=== PATIENT | female | born 1985 | race Caucasian/White ===

== ENCOUNTER 2021-02-04 09:02 | Emergency (ER) | payer OTHER, SELFPAY ==
[2021-02-04 09:05] VITALS: BP 123/76; PULSE 74; RESP 17; TEMP 36.6; O2SAT 100; BMI 32.2
--- NOTE | 2021-02-04 09:28 | EKG12_ITS ---
Test Reason : CP Blood Pressure : / mmHG Vent. Rate : 078 BPM Atrial Rate : 078 BPM P-R Int : 140 ms QRS Dur : 072 ms QT Int : 406 ms P-R-T Axes : 053 003 006 degrees QTc Int : 462 ms Normal sinus rhythm Normal ECG Confirmed by HUE RASCON MD ([id number]), research editor [address] ([id number]) on 02/07/2021 1:10:48 PM Referred By: JACQUES
--- NOTE | 2021-02-04 09:28 | EDS_ITS ---
HPI History of Present Illness Chief Complaint: Chest Pain Informant: patient Onset/Context/Timing Onset: Weeks (1) Activity at onset: sudden (has triggered multiple times by bending over) and onset Timing: Intermittent and Lasts (hrs) Quality: Positive for Pain Location: Substernal (sometimes feels in mid-upper back) Current Severity: Mild Maximum Severity: Moderate Worsened By: Movement of Arm, Movement of Torso, Palpation, Breathing and Coughing; Not Worsened By Exertion Relieved By: Remaining Still (and breathing easy) Associated Symptoms: Positive for Dyspnea (a little when exerting/walking) and Cough; Negative for Nausea, Vomiting, Diaphoresis, Fever, Lightheadedness and Palpitations Narrative Narrative: Patient states she has been coughing for about 3 weeks. It has been nonproductive. She lost her sense of taste and smell although they have come back and she presumes that she had Covid but did not get tested at the time. She is unvaccinated. She has had no dyspnea until recently when she has been having this chest discomfort for the past week off and on. She does get it tristen ry day. She saw urgent care 3 days ago and they prescribed her doxycycline. She has noticed no difference. They did not she do chest x-ray and she states they told her her lungs sounded clear. She has had no new symptoms since then. No GI symptoms. No history of blood clots. No leg pain or swelling. She is healthy otherwise. PFSH PFS Medical History no medical history no medical history Allergy/AdvReac Type Severity Reaction Status Date / Time No Known Allergies Allergy Verified 02/04/21 09:02 Surgical History no surgical history no surgical history Social History Smoking Status: Never smoker [facility] ED Constitutional Constitutional ED: Denies chills or fever(s) Eyes Eyes: Denies change in vision or diplopia ENT ENT ED: Denies rhinorrhea or sore throat Cardiovascular Cardiovascular: Reports as per HPI and chest pain; Denies lightheadedness, palpitations, pedal edema or radiating jaw, neck or arm pain Respiratory/Chest Respiratory/Chest: Reports cough and dyspnea on exertion; Denies sputum or wheezing Gastrointestinal Gastrointestinal: Denies abdominal pain, diarrhea, nausea or vomiting Genitourinary Genitourinary ED: Denies dysuria or hematuria Musculoskeletal Musculoskeletal: Denies back pain or neck pain Integumentary Denies abscess or rash Neurologic Neurologic: Denies headache(s), paresthesias or weakness Psychiatric Psychiatric: Denies anxiety or suicidal thoughts EXAM Physical Exam Const Vital Signs: 02/04/21 09:05 02/04/21 09:33 Temperature 97.9 F 97.3 F L Temperature Source Oral Oral Pulse Rate 74 67 Respiratory Rate 17 15 Respiratory Effort Normal Non-Labored Blood Pressure 123/76 H 127/84 H Blood Pressure Mean 91 98 Pulse Ox 100 100 Oxygen Delivery Method Room Air Room Air Positive well nourished and well developed Constitutional Narrative: Well-appearing, conversive in full sentences General Appearance ED: well developed and NAD HEENT Reports moist mucous membranes normocephalic and atraumatic Eyes PERRL and EOMs intact bilaterally Neck full ROM and supple Chest Wall inspection of chest normal and inspection of breasts normal Chest Narrative: Sternum and bilateral parasternal musculature are all mildly tender, reproducing the patient's discomfort Resp normal respiratory effort and clear to auscultation bilaterally Cardio regular rate, regular rhythm and no murmurs Rate: Negative for tachycardic GI non-tender and non-distended Auscultation: normoactive bowel sounds Palpation: soft Back/Spine no CVA tenderness General Back: other FROM Extremity normal to inspection and no calf tenderness General Extremety ED: Negative for edema, pulses abnormal or tenderness General Extremity: Negative for edema or pulses abnormal Neuro oriented x3, CN's II-XII intact bilaterally and no sensory deficits noted Sensorium / Orientation: awake and alert Motor Exam: strength 5/5 throughout Skin no rashes or lesions noted and no wounds Heart Score History: Slightly/Non-Suspicious ECG: Normal Age: </= 45 years Risk Factors: No Risk Factors Troponin: </= Normal Limit Score: 0 MDM MDM MDM Narrative Medical decision making narrative: Work-up is negative including D-dimer, troponin, EKG, chest x-ray. Patient was given a GI cocktail in the meantime, in case there is an esophageal component, which sometimes is seen when people bend over and have onset of pain, this did not help significantly. Given all of this work-up negative including her rapid Covid, I suspect this is musculoskeletal in etiology. Her exam is consistent with that. Supportive care advised, reassured, this is likely due to coughing for 3 weeks, and likely will be self- limiting after her cough is better. Given Toradol prior to discharge, ibuprofen as needed recommended. Lab Data Attestation: I reviewed the patient's lab results. Labs: Laboratory Results - last 24 hr 02/04/21 02/04/21 02/04/21 09:27 09:27 09:27 WBC 6.5 RBC 5.01 Hgb 14.7 Hct 43.4 MCV 86.6 MCH 29.3 MCHC 33.9 RDW Std Deviation 40.9 RDW Coeff of José Miguel 13.2 Plt Count 182 MPV 10.1 Immature Gran % (Auto) 0.300 Neut % (Auto) 61.4 Lymph % (Auto) 27.6 [place] % (Auto) 8.6 Eos % (Auto) 1.5 Baso % (Auto) 0.6 Absolute Neuts (auto) 4.0 Absolute Lymphs (auto) 1.80 Nucleated RBC % 0 D-Dimer Quant (PE/DVT) 0.32 Sodium 138 Potassium 3.7 Chloride 107 Carbon Dioxide 27.0 Anion Gap 4 L BUN 6 L Creatinine 0.80 Estim Creat Clear Calc 93.63 Est GFR (MDRD) Af Amer 106 Est GFR (MDRD) Non-Af 88 BUN/Creatinine Ratio 7.5 L Glucose 96 Calcium 9.2 Troponin I High Sens 5 Radiography Diagnostic Testing: Clinical Impression(s) from Imaging Studies Chest X-Ray 02/04/21 09:45 IMPRESSION: Normal x-ray examination of the chest. Electronically Signed: Williams Valdivia MD at 10:00 EST , Service support , Rhythm Strip Rhythm Strip: Sinus Rhythm Rate: 75 Ectopy: None EKG Initial EKG: Attestation: I personally reviewed and interpreted this EKG as follows: Interpretation: Sinus Rhythm and No Acute Injury Pattern Comments: Normal EKG Discharge Plan Triage Chief Complaint: Chest Pain ED Provider: Silvano Chavez Dx/Rx/DC Orders Clinical Impression: Chest wall muscle strain, Cough Instructions: ED Chest Wall Pain, Costochondritis Prescriptions: Discontinued doxycycline monohydrate 100 mg Tablet 100 mg PO BID RF: 0 Primary Care Provider: Care Physician,No Primary Referrals: Doctor,Your [STAFF PHYSICIAN] - 1 Week if not improving Activity Restrictions/Additional Instructions: Ibuprofen as needed for discomfort Disposition Disposition: Home, Self Care
[2021-02-04 09:33] VITALS: BP 127/84; PULSE 67; RESP 15; TEMP 36.3; O2SAT 100
[2021-02-04 09:36] LABS: Basophil# 0.04 X10^3/uL; Basophil% 0.6 % (0-1); Eosinophils% 1.5 % (0-5); Hematocrit 43.4 % (37-47); Hemoglobin 14.7 g/dL (12.0-15.0); Lymphocyte % 27.6 % (19-41); Mean Corp Hgb Conc 33.9 g/dL (32-36); Mean Corpuscular Hgb 29.3 pg (27.0-32.0); Mean Corpuscular Volume 86.6 fL (81-99); Mean Platelet Vol. 10.1 fl (6.2-12.0); Monocyte# 0.56 X10^3/uL; Monocyte% 8.6 % (0-10); NRBC Flagged by Analyzer 0 % (0-5); Neutrophil # 3.99 X10^3/uL (2.7-7.7); Neutrophil % 61.4 % (47-70); Platelet Count 182 K/mm3 (150-450); RBC Distribution Width CV 13.2 % (11.6-14.6); RBC Distribution Width SD 40.9 fl (35.1-43.9); Red Blood Count 5.01 M/mm3 (4.2-5.4); White Blood Count 6.5 K/mm3 (4.4-11.0)
--- NOTE | 2021-02-04 09:45 | RAD_ITS ---
STUDY: X-RAY CHEST REASON FOR EXAM: Female, 35 years old. Intermittent chest pain for one week. TECHNIQUE: PA and lateral views of the chest. COMPARISON: None. FINDINGS: EKG electrodes are seen. The lungs are clear and expanded. There is no demonstrated pleural abnormality. Normal size heart. Normal mediastinum and jeison. Normal visualized pulmonary arteries. Normal visualized aortic arch and descending thoracic aorta. Normal visualized thoracic spine. Normal visualized ribs, clavicles, and shoulders. There is no demonstrated abnormality of the visualized soft tissue structures of the upper abdomen. RAD/Chest PA and Lateral IMPRESSION: Normal x-ray examination of the chest. Electronically Signed: Williams Valdivia MD at 10:00 EST , Service support ,
[2021-02-04 09:50] LABS: Anion Gap 4 (5-15); BUN 6 mg/dL (7-18); BUN/Creat Ratio 7.5 RATIO (10-20); Calcium,Total 9.2 mg/dL (8.5-10.1); Chloride 107 mmol/L (98-107); EST Glomerular Filtration Rate 88 mL/min (>60); Est Glom Filt Rate - Afr Amer 106 mL/min (>60); Estimated Creatinine Clearance 93.63 ml/min; Glucose 96 mg/dL (74-106); Potassium 3.7 mmol/L (3.5-5.1); Sodium Level 138 mmol/L (136-145); Troponin-I HS 5 pg/mL (3.0-54.0)
[2021-02-04 09:51] LABS: D-Dimer Quantitative (DVT/PE) 0.32 FEU/ug/m (0.27-0.49)
[2021-02-04] MEDS: Mag Hydrox/Al Hydrox/Simeth 30 ML UDC PO (09:54)
[2021-02-04 10:54] VITALS: BP 121/69; PULSE 59; RESP 16; O2SAT 98
[2021-02-04] MEDS: Ketorolac 30 MG/ML Syringe IV (10:54)
== END 2021-02-04 10:55 | disposition home or self-care (01) ==
PROVIDERS: Emergency Provider Emergency Medicine
DX: S29.011A Strain of muscle and tendon of front wall of thorax, initial encounter (principal); R05.9 Cough, unspecified; X58.XXXA Exposure to other specified factors, initial encounter; Y93.9 Activity, unspecified; Y92.9 Unspecified place or not applicable
CPT/HCPCS: 71046; 80048; 84484; 85025; 85379; 87426; 93005; 96374; 99285; A4216